=== PATIENT | male | born 1990 | race African-American/Black ===

== ENCOUNTER 2019-10-07 11:52 | Emergency (ER) | payer OTHER ==
[~2019-10-07] VITALS: Ht 167.6 cm; Wt 109.7 kg
--- NOTE | 2019-10-07 12:28 | REP ---
Right ankle series: Four views. History: Pain right ankle. No injury. Findings: Four views right ankle demonstrate an intact ankle mortise. No fractures seen. There is Achilles calcaneal spurring. Bones, joints and soft tissues are otherwise unremarkable. Impression: Achilles calcaneal spurring. No acute bony abnormality. Electronically Signed by Jaime Swartz MD 10/07/2019 12:20 P
[2019-10-07 13:44] VITALS: BP 131/79
== END 2019-10-07 13:48 | disposition home or self-care (01) ==
LOC: M ED 13:24
DX: M77.31 Calcaneal spur, right foot (principal); M25.571 Pain in right ankle and joints of right foot; G89.29 Other chronic pain; D55.0 Anemia due to glucose-6-phosphate dehydrogenase [G6PD] deficiency